=== PATIENT | male | born 1975 | race Caucasian/White ===

== ENCOUNTER 2024-04-06 18:32 | Emergency (ER) | payer OTHER, SELFPAY ==
[2024-04-06 18:41] VITALS: BP 156/92; PULSE 91; RESP 18; TEMP 37; O2SAT 96; BMI 34.8
[2024-04-06 19:07] LABS: Appearance Urine Clear (Clear); Bilirubin Urine Negative (Negative); Blood Urine Negative (Negative); Color Urine Yellow (Yellow); Glucose Urine Negative (Negative); Ketones Urine Negative (Negative); Leukocyte Esterase Urine Negative (Negative); Nitrite Urine Negative (Negative); Protein Urine Negative (Negative); Urobilinogen Urine 0.2 (0.2-1.0); pH Urine 7.5 (5.0-8.5)
--- NOTE | 2024-04-06 19:08 | CRLHL7_ITS ---
For Patients: As a result of the Century Cures Act, medical imaging exams and procedure reports are released immediately into your electronic medical record. You may view this report before your referring provider. If you have questions, please contact your health care provider. INDICATION: Right lower quadrant pain. TECHNIQUE: CT abdomen and pelvis acquired with 93 cc of Isovue-370 IV contrast. COMPARISON: None. FINDINGS: Lower chest: Unremarkable. Liver: Unremarkable. Normal in size and attenuation. No suspicious masses. Gallbladder and bile ducts: Unremarkable. No stones or inflammation. No biliary dilatation. Pancreas: Unremarkable. No mass or inflammation. Spleen: Unremarkable. Normal in size. No masses. Adrenal glands: Unremarkable. No nodules. Kidneys: 3 mm nonobstructing right nephrolith. Otherwise, unremarkable. GI tract: Unremarkable. Normal in caliber. No sign of mass or inflammation. Normal appendix. Vasculature: Abdominal aorta is normal in caliber. Mesenteric arteries are patent. Lymph nodes: No lymphadenopathy. Peritoneum/Abdominal Wall: Unremarkable. No free air or significant free fluid. Pelvis: Unremarkable. Bones: Unremarkable for age. IMPRESSION: 1. No acute findings within the abdomen or pelvis. Normal appendix. 2. 3 mm nonobstructing right nephrolith. Please note that all CT scans at this facility use dose modulation, iterative reconstruction, and/or weight-based dosing when appropriate to reduce radiation dose to as low as reasonably achievable. Dictated by Papito Oconnor MD @ 04/06/2024 9:04:36 PM (Electronically Signed)
--- NOTE | 2024-04-06 19:10 | ED.GENADULT ---
HPI - General Adult General Date Seen: 04/06/24 Chief complaint: Abdominal Pain Stated complaint: abdomen pain Time Seen by Provider: 04/06/24 19:04 Source: patient Mode of arrival: ambulatory Limitations: no limitations History of Present Illness HPI narrative: Patient is a 48-year-old generally healthy man here for right lower quadrant pain which he said started early this morning. He does do a lot of lifting for work and lifting may be makes it feel little bit worse. He denies nausea or vomiting and says his appetite has been normal today. He has not had constipation or diarrhea, denies urinary symptoms. Has not felt any bulges in his abdomen. Has not had fevers or chills. General health is good, he does not smoke or drink. Related Data Home Medications ?Medication ?Instructions ?Recorded ?Confirmed No Known Home Medications 04/06/24 04/06/24 Allergies Allergy/AdvReac Type Severity Reaction Status Date / Time No Known Drug Allergies Allergy Verified 04/06/24 19:44 Review of Systems Status of ROS: Reports: 10 or more systems reviewed and unremarkable except as noted in History and below [facility] Social History Smoking Status: Never smoker How often do you have a drink containing alcohol: never AUDIT-C Alcohol total score: 0 Non-prescribed substance use: denies use Exam Narrative: Exam Narrative: Vital signs as noted above. In general, an alert, well-appearing patient. Head: Normocephalic, atraumatic. Eyes: Pupils are equal reactive. Extraocular movements are full. Conjunctivae are normal. ENT: Mucous membranes are moist. Throat is normal. Neck: Supple without lymphadenopathy. Heart: Regular rate and rhythm. No murmur or rub. Lungs: Clear bilaterally. No increased work of breathing, crackles or wheezes. Abdomen: Abdomen is soft, nondistended. He has focal tenderness at McBurney's point with some voluntary guarding. I am not able to reproduce the pain with Valsalva at this time. I do not feel any hernia in the abdominal wall. No rebound or rigidity. Extremities: Well perfused. No edema. No calf tenderness. Pulses intact. Neurologic: Patient is alert and oriented to person and place. Speech is fluent. Face is symmetric. Moves all extremities equally. Affect: Normal. Skin: Warm and dry. Well perfused. Const: Vital Signs, click to edit/add: Vital Signs - 24 hr 04/06/24 18:41 04/06/24 20:53 Temperature 98.6 F 98.9 F Pulse Rate [Right Pulse Oximeter] 91 87 Respiratory Rate 18 18 Blood Pressure [Ri ght Upper Arm] 156/92 H 131/80 Pulse Oximetry 96 97 Oxygen Delivery Me thod Room Air Room Air Documenting provider has reviewed patient's vital signs: yes Course Course ED Course: Patient has focal tenderness at McBurney's point, does not have any other symptoms which strongly suggest appendicitis at this time but I do think with worsening pain throughout the course of the day and his exam that ruling out appendicitis would be prudent. CT scan ordered as well as a UA, CBC, CRP and metabolic panel. Other diagnostic considerations would be musculoskeletal strain, hernia, diverticulitis, kidney stone among others. Labs are notable for mildly elevated white blood cell count of 12.3, hemoglobin is 16. He does have a left shift with 85% neutrophils. Metabolic panel is normal, CRP is less than 0.5 an urinalysis is negative. CT scan by my review showed a normal appearing appendix, no kidney stones or hydronephrosis. Final radiology read as follows:Patient: MERE AN Facility: [facility] . Site : [id number] Study: CT-Abdomen/Pelvis 93CC ISOVUE 370-04/06/2024 7:44:02 PM Ordering Physician: Cirilo Espinal Final Report: INDICATION: Right lower quadrant pain. TECHNIQUE: CT abdomen and pelvis acquired with 93 cc of Isovue-370 IV contrast. COMPARISON: None. FINDINGS: Lower chest: Unremarkable. Liver: Unremarkable. Normal in size and attenuation. No suspicious masses. Gallbladder and bile ducts: Unremarkable. No stones or inflammation. No biliary dilatation. Pancreas: Unremarkable. No mass or inflammation. Spleen: Unremarkable. Normal in size. No masses. Adrenal glands: Unremarkable. No nodules. Kidneys: 3 mm nonobstructing right nephrolith. Otherwise, unremarkable. GI tract: Unremarkable. Normal in caliber. No sign of mass or inflammation. Normal appendix. Vasculature: Abdominal aorta is normal in caliber. Mesenteric arteries are patent. Lymph nodes: No lymphadenopathy. Peritoneum/Abdominal Wall: Unremarkable. No free air or significant free fluid. Pelvis: Unremarkable. Bones: Unremarkable for age. IMPRESSION: 1. No acute findings within the abdomen or pelvis. Normal appendix. 2. 3 mm nonobstructing right nephrolith. Please note that all CT scans at this facility use dose modulation, iterative reconstruction, and/or weight-based dosing when appropriate to reduce radiation dose to as low as reasonably achievable. Dictated by Papito Oconnor MD @ 04/06/2024 9:04:36 PM Findings reviewed with the patient. Symptoms may be muscular, would recommend a trial of conservative management with ibuprofen and/or Tylenol, ice, relative rest. See primary care if not improving over the next week or so. For significant worsening, new symptoms such as fever, nausea, anorexia vomiting etcetera return to the emergency department for re-evaluation. Vital Signs Vital signs: Initial Vital Signs Temperature 98.6 F 04/06/24 18:41 Temperature Source Temporal Artery Scan 04/06/24 18:41 Pulse Rate 91 04/06/24 18:41 Respiratory Rate 18 04/06/24 18:41 Blood Pressure 156/92 H 04/06/24 18:41 Blood Pressure Mean 113 H 04/06/24 18:41 Blood Pressure Position Sitting 04/06/24 18:41 Pulse Oximetry 96 04/06/24 18:41 Oxygen Delivery Method Room Air 04/06/24 18:41 Vital Signs Temperature 98.6 F 04/06/24 18:41 Pulse Rate 91 04/06/24 18:41 Respiratory Rate 18 04/06/24 18:41 Blood Pressure 156/92 H 04/06/24 18:41 Pulse Oximetry 96 04/06/24 18:41 Oxygen Delivery Method Room Air 04/06/24 18:41 Temperature 98.9 F 04/06/24 20:53 Pulse Rate 87 04/06/24 20:53 Respiratory Rate 18 04/06/24 20:53 Blood Pressure 131/80 04/06/24 20:53 Pulse Oximetry 97 04/06/24 20:53 Oxygen Delivery Method Room Air 04/06/24 20:53 Medications Administered Medications: Discontinued Medications Generic Name Dose Route Start Last Admin Trade Name Freq PRN Reason Stop Dose Admin Sodium Chloride 500 mls @ 500 mls/hr 04/06/24 19:08 04/06/24 20:52 0.9 % Sodium Chloride 500 Ml IV 04/06/24 20:07 Infused .Q1H ONE Infusion Medical Decision Making Lab Data Labs: Lab Results 04/06/24 04/06/24 Range/Units 19:00 19:26 WBC 12.26 H (4.50-11.00) K/uL RBC 5.01 (4.30-5.90) m/uL Hgb 16.1 (13.5-17.5) gm/dL Hct 45.3 (37.0-53.0) % MCV 90 (80-100) fL MCH 32 (26-34) pg MCHC 36 (32-36) gm/dL RDW Coeff of [place] 12.1 (11.5-15.5) % Plt Count 159 (140-440) K/uL Neut % (Auto) 84.5 H (42.0-72.0) % Lymph % (Auto) 8.2 L (20-44) % [place] % (Auto) 6.4 (0.0-11.0) % Eos % (Auto) 0.4 (0.0-7.0) % Baso % (Auto) 0.3 (0.0-3.0) % Neut # (Auto) 10.40 H (1.7-7.0) K/uL Lymph # (Auto) 1.00 (0.90-2.90) K/uL [place] # (Auto) 0.80 (0.00-0.90) K/UL Eos # (Auto) 0.00 (0.00-0.50) K/uL Baso # (Auto) 0.00 (0.00-0.30) K/uL Abs Immat Gran (auto) 0.00 (0.00-0.30) K/uL Imm/Tot Granulo (auto) 0.2 % Sodium 141 (135-149) mmol/L Potassium 4.0 (3.6-5.1) mmol/L Chloride 105 (96-114) mmol/L Carbon Dioxide 25 (20-32) mmol/L Anion Gap 11 (7-15) mEq/L BUN 24 (7-30) mg/dL Creatinine 1.3 (0.5-1.5) mg/dL Estimated Creat Clear 52.50 Estimated GFR 67 ml/min Glucose 98 (60-115) mg/dL Calcium 9.4 (8.4-10.6) mg/dL C-Reactive Protein < 0.5 L (0.5-1.0) mg/dL Urine Color Yellow (Yellow) Urine Appearance Clear (Clear) Urine pH 7.5 (5.0-8.5) Ur Specific [place] 1.020 (1.000-1.030) Urine Protein Negative (Negative) Urine Glucose (UA) Negative (Negative) Urine Ketones Negative (Negative) Urine Blood Negative (Negative) Urine Nitrite Negative (Negative) Urine Bilirubin Negative (Negative) Urine Urobilinogen 0.2 (0.2-1.0) Ur Leukocyte Esterase Negative (Negative) Urine RBC 0-2 (0-2) Urine WBC 2-5 (0-5) Ur Squamous Epith Cells None (None-Few) Urine Bacteria Few A (None) Discharge Plan Discharge Clinical Impression: Abdominal pain, right lower quadrant Patient Disposition: Home, Self-Care Condition: Stable Instructions: Abdominal Pain (ED) Additional Instructions: Your CT scan shows that your appendix looks normal, no evidence of significant hernia or other abnormalities. For now, I would recommend using ibuprofen or Tylenol over the next few days, ice may be helpful as well. Symptoms may be muscular. If pain is worsening, associated with new symptoms such as fever, nausea, vomiting, anorexia, bloody stools etcetera, return any time to the emergency department. See your regular clinic if symptoms do not gradually improve over the next 7-10 days. Prescriptions: No Action No Known Home Medications Follow Up/Referrals: Red Haskins MD [Primary Care Provider] - Stand Alone Forms: [employer] Info Instructions
[2024-04-06 19:19] LABS: Bacteria Urine Few; RBC Urine 0-2 (0-2)
[2024-04-06 19:34] LABS: Basophils Percent Auto 0.3 % (0.0-3.0); Eosinophils Percent Auto 0.4 % (0.0-7.0); Hematocrit 45.3 % (37.0-53.0); Hemoglobin* 16.1 gm/dL (13.5-17.5); Immature Granulocytes Pct Auto 0.2 %; Lymphocytes Percent Auto 8.2 % (20-44); Mean Corpuscular HGB Conc 36 gm/dL (32-36); Mean Corpuscular Hemoglobin 32 pg (26-34); Mean Corpuscular Volume 90 fL (80-100); Monocytes Percent Auto 6.4 % (0.0-11.0); Neutrophils Percent Auto 84.5 % (42.0-72.0); Platelet Count* 159 K/uL (140-440); RDW Coefficient of Variation % 12.1 % (11.5-15.5); Red Blood Count 5.01 m/uL (4.30-5.90); White Blood Count* 12.26 K/uL (4.50-11.00)
[2024-04-06 19:35] LABS: Slide Review Reflex No
[2024-04-06 19:46] LABS: Chloride* 105 mmol/L (96-114); Sodium* 141 mmol/L (135-149)
[2024-04-06 19:49] LABS: Anion Gap 11 mEq/L (7-15); Blood Urea Nitrogen* 24 mg/dL (7-30); Carbon Dioxide* 25 mmol/L (20-32); Creatinine* 1.3 mg/dL (0.5-1.5); Estimated Glomerular Filt Rate 67 ml/min
[2024-04-06 19:50] LABS: Calcium* 9.4 mg/dL (8.4-10.6); Glucose* 98 mg/dL (60-115)
[2024-04-06] MEDS: 0.9 % SODIUM CHLORIDE 500 ML 500 ML IV (19:50)
[2024-04-06 19:55] LABS: C Reactive Protein* < 0.5 mg/dL (0.5-1.0)
[2024-04-06 20:53] VITALS: BP 131/80; PULSE 87; RESP 18; TEMP 37.2; O2SAT 97
== END 2024-04-06 21:48 | disposition home or self-care (01) ==
PROVIDERS: Emergency Provider Emergency Medicine; PCP Family Medicine
DX: R10.31 Right lower quadrant pain (principal)
CPT/HCPCS: 36415; 74177; 80048; 81001; 85025; 86140; 87086; 96360; 99284; 99285; J7030; Q9967